=== PATIENT | female | born 1960 | race American Indian/Alaskan Native ===

== ENCOUNTER 2016-11-03 07:06 | Outpatient (CLI) | payer OTHER ==
--- NOTE | 2016-11-03 13:51 | Magnetic Resonance Report ---
MRI PELVIS WITHOUT CONTRAST: 11/03/16 CLINICAL: Urinary stone. COMPARISON :None. TECHNIQUE: Sagittal, coronal and axial T1 and T2 fat sat sequences on a 1.5 Angelita magnet. FINDINGS: Absence of the uterus and normal vaginal cuff. The urinary bladder is moderately distended with a normal contour and wall thickness. No urinary bladder mass or calculus. Ureters are not imaged. Normal rectum and sigmoid colon filled with stool. Ovaries are not identified. No adnexal mass. No free fluid. Vascular structures are grossly intact. Normal bones and soft tissues. IMPRESSION: Normal pelvis status post hysterectomy. Urinary bladder is normal with no evidence of bladder calculus or mass.
== END 2016-11-03 07:07 | disposition home or self-care (01) ==
LOC: MRI 07:06
PROVIDERS: ATTEND Urology
DX: N20.0 Calculus of kidney (principal); N32.89 Other specified disorders of bladder; K57.90 Diverticulosis of intestine, part unspecified, without perforation or abscess without bleeding; Z90.710 Acquired absence of both cervix and uterus
CPT/HCPCS: 72195